=== PATIENT | female | born 2000 | race Two or more races ===

== ENCOUNTER 2021-12-06 23:45 | Emergency (ER) | payer MEDICAID ==
[~2021-12-06 23:45] MED LIST: Sodium Chloride 0.9% 1,000 ML IV SCH
[2021-12-06] MEDS ORDERED: Ondansetron 4 MG/2 ML SDV IVPUSH ONE (23:52)
[2021-12-06] MEDS ORDERED: Sodium Chloride 0.9% 10 ML Syringe FLUSH PRN (23:52)
[2021-12-07 00:31] LABS: ESTIMATED GFR 92 mL/min (>60)
[2021-12-07 00:34] LABS: ACETAMINOPHEN 0 ug/mL (10-30)
== END 2021-12-07 03:54 | disposition home or self-care (01) ==
LOC: EDBD 23:45 → JD.ED 23:45
DX: F10.920 Alcohol use, unspecified with intoxication, uncomplicated (principal)
CPT/HCPCS: 36415; 80053; 80143; 80179; 80307; 84703; 85025; 96361; 96374; 99284; J2405; J3490; J7030; 99282

== ENCOUNTER 2022-02-06 18:34 | Emergency (ER) | payer MEDICAID ==
[2022-02-06] MEDS ORDERED: Sodium Chloride 0.9% 1,000 ML IV ONE (18:51)
[2022-02-06] MEDS ORDERED: Sodium Chloride 0.9% 10 ML Syringe FLUSH PRN (18:51)
[2022-02-06] MEDS ORDERED: Potassium Chloride 20 MEQ Tab.ER PO ONE (19:57)
[2022-02-06] MEDS ORDERED: Lactated Ringers 1,000 ML IV ONE (20:00)
== END 2022-02-06 20:29 | disposition home or self-care (01) ==
LOC: JD.ED 18:34
DX: F10.920 Alcohol use, unspecified with intoxication, uncomplicated (principal); E87.6 Hypokalemia; Z79.899 Other long term (current) drug therapy
CPT/HCPCS: 36415; 80053; 80143; 80179; 80307; 83735; 84443; 85025; 96360; 99284; A9270; J3490; J7030; 99282

== ENCOUNTER 2023-10-12 18:04 | Emergency (ER) | payer MEDICAID ==
[2023-10-12 19:52] LABS: BASOPHILS ABSOLUTE AUTO 0.1 K/mm3 (0.0-0.2); BASOPHILS PERCENT AUTO 0.7 % (0.0-1.0); EOSINOPHILS ABSOLUTE AUTO 0.3 K/mm3 (0.0-0.4); EOSINOPHILS PERCENT AUTO 3.4 % (0.0-6.0); HEMATOCRIT 41.6 % (37.0-47.0); HEMOGLOBIN 14.1 gm/dl (12.0-16.0); IMMATURE GRAN ABSOLUTE AUTO 0.02 K/mm3 (0.00-0.05); IMMATURE GRAN PERCENT AUTO 0.3 % (0.0-0.4); LYMPHOCYTES ABSOLUTE AUTO 2.7 K/mm3 (1.0-4.8); MEAN CORPUSCULAR HEMOGLOBIN 28.8 pg (28.0-32.0); MEAN CORPUSCULAR HGB CONC 33.9 g/dl (32.0-36.0); MEAN CORPUSCULAR VOLUME 85.1 fl (83.0-99.0); MEAN PLATELET VOLUME 9.5 fl (9.4-12.3); MONOCYTES ABSOLUTE AUTO 0.5 K/mm3 (0.0-0.8); MONOCYTES PERCENT AUTO 6.8 % (0.0-8.0); NEUTROPHILS ABSOLUTE AUTO 4.1 K/mm3 (1.8-7.7); NEUTROPHILS PERCENT AUTO 53.8 % (41.0-71.0); PLATELET COUNT,PLT 302 K/mm3 (150-400); RED BLOOD CELL COUNT 4.89 M/mm3 (4.10-5.30); WHITE BLOOD CELL COUNT,WBC 7.61 K/mm3 (3.9-11.3)
[2023-10-12 21:26] LABS: APPEARANCE,URINE SLT CLOUDY (Clear); BILIRUBIN,URINE NEGATIVE (Negative); COLOR,URINE RED (Yellow); GLUCOSE,URINE NEGATIVE (Negative); KETONES,URINE NEGATIVE (Negative); LEUKOCYTE ESTERASE,URINE TRACE (Negative); NITRITE,URINE NEGATIVE (Negative); OCCULT BLOOD,URINE 3+ (Negative); PH,URINE 6.5 (5.0-8.0); PROTEIN,URINE 2+ (Negative); UROBILINOGEN,URINE 0.2 (0.2-1.0)
[2023-10-12 21:58] LABS: AMORPHOUS SEDIMENT,URINE FEW /hpf (NOT SEEN); BACTERIA,URINE FEW /hpf (FEW); EPITHELIAL CELLS,URINE 0-5 /hpf (0-5); MUCUS,URINE NOT SEEN /hpf (FEW); RBC,URINE >100 /hpf (0-5); WBC,URINE 0-5 /hpf (0-5)
== END 2023-10-12 22:15 | disposition home or self-care (01) ==
LOC: JD.ED 18:04
DX: N92.1 Excessive and frequent menstruation with irregular cycle (principal); F17.210 Nicotine dependence, cigarettes, uncomplicated; Z79.899 Other long term (current) drug therapy; Z86.16 Personal history of COVID-19
CPT/HCPCS: 36415; 76830; 76830-26; 81001; 81003; 84702; 85025; 87086; 99284